=== PATIENT | female | born 1965 | race Caucasian/White ===

== ENCOUNTER 2017-11-12 10:28 | Day surgery (SDC) | payer BC ==
[2017-11-12] MEDS ORDERED: Sodium Citrate/Citric Acid* 15 ML UDC ONE (11:16)
[2017-11-12] MEDS ORDERED: Metoclopramide TAB* 10 MG ONE (11:16)
[2017-11-12] MEDS ORDERED: ceFAZolin 2 GM PREMIX (*) 2 GM/50 ML BAG IVPB ONE (12:36)
[2017-11-12] MEDS ORDERED: Lidocaine 1% MPF wEPI 200,000* 30 ML SDV ONE ×2 (13:27→14:18)
[2017-11-12] MEDS ORDERED: Bupivacaine 0.25% SDV* 30 ML ONE (13:28)
[2017-11-12] MEDS ORDERED: Midazolam* 1 MG/ML 5 ML VIAL (5 MG) ONE (13:54)
[2017-11-12] MEDS ORDERED: fentaNYL* 50 MCG/ML 2 ML VIAL (100 MCG VIAL) ONE (13:54)
[2017-11-12] MEDS ORDERED: Acetaminophen TAB* 325 MG PO PRN (14:15)
[2017-11-12] MEDS ORDERED: Naloxone* 0.4 MG/ML 1 ML VIAL IV PRN (14:15)
[2017-11-12] MEDS ORDERED: Propofol* 10 MG/ML 20 ML BTL IV PUSH ONE (14:18)
[2017-11-12] MEDS ORDERED: oxyCODONE TAB* 5 MG TAB PO PRN (14:54)
--- NOTE | 2017-11-12 15:03 | BRIEFOPN ---
Brief Operative Note - Surgery Procedures: PRE/POSTOPDX: LEFT AXILLARY LYMPHADENOPATHY PROC: INCISIONAL BIOPSY OF ABOVE SURG: MECENAS ASSIST: NONE ANES: LOCAL MAC/BYLEBYL EBL: MIN IVF: CRYSTALLOID SPEC: L AX LN INCISIONAL BX DRAIN/COMPL: NONE COND: STABLE TO RR.
[2017-11-12 15:41] VITALS: BP 103/65
--- NOTE | 2017-11-12 23:17 | OP ---
CC: Danny Gonzalez DO; Michael Au MD * DATE OF OPERATION: 11/12/17 - [facility] DATE OF : 65 SURGEON: Colin Berman MD RABBIT DRESSER: None. ANESTHESIOLOGIST: Dr. Rodriguez. ANESTHESIA: Local MAC. PRE-OP DIAGNOSIS: Left axillary lymphadenopathy. POST-OP DIAGNOSIS: Left axillary lymphadenopathy. OPERATIVE PROCEDURE: Incisional biopsy left axillary lymph node. ESTIMATED BLOOD LOSS: Minimal. IV FLUIDS: Crystalloid. SPECIMENS: Incisional biopsy of left axillary lymph node. DRAINS: None. COMPLICATIONS: None. COUNTS: Instrument, needle, and sponge counts were correct. DESCRIPTION OF PROCEDURE: The patient was brought to the operating room and placed on the table supine. Left arm was extended laterally and the site was prepped and draped in the usual sterile fashion. Time-out was performed. Local anesthetic was infiltrated into the skin, soft tissue, and curvilinear incision was created in the lower axilla in the anterior position where the lymph node was palpated. Subcutaneous tissues were divided with cautery and axillary space was entered. Some crossing small vessels were ligated with clips and divided. The lymph node was identified and then #15 blade scalpel was used to excise approximately 1 cubic centimeter of tissue. This was submitted fresh to pathology. The site was packed with Surgicel and inspected for hemostasis which was good. The wound was then closed with 3-0 Vicryl to approximate subcutaneous tissues and 4-0 Monocryl to close the skin in running subcuticular fashion, and Steri-Strips and dressing were applied. The patient tolerated the procedure well and was transferred to Recovery in stable condition. [id number]/[facility] #: [id number] [facility]
== END 2017-11-12 15:42 | disposition home or self-care (01) ==
LOC: OR 10:28
PROVIDERS: ATTEND Surgery
DX: C82.94 Follicular lymphoma, unspecified, lymph nodes of axilla and upper limb (principal); F17.210 Nicotine dependence, cigarettes, uncomplicated; M19.90 Unspecified osteoarthritis, unspecified site; F41.8 Other specified anxiety disorders; K21.9 Gastro-esophageal reflux disease without esophagitis
CPT/HCPCS: 81025; 88184; 88187; 88188; 88189; 88271; 88291; 88305; 88333; 88341; 88342; 88360; A9270-GY; J0690; J2001; J2250; J2704; J3010

== ENCOUNTER → 2017-11-15 07:17 | Day surgery (SDC) | payer BC ==
[~2017-11-15 07:17] MED LIST: Acetaminophen TAB* 325 MG PO PRN; Buffered Lidocaine 0.9% SYRIN* 5 ML/SYR SYRINGE INTRADERM ONE; Bupivacaine 0.25% SDV* 30 ML ONE; DiMENhydriNATE IV* 50 MG/ML VIAL IV PUSH PRN; Famotidine IV* 10 MG/ML 2 ML (20 mg) ONE; HYDROcodone/ACETAMIN 5-325 MG* 1 TAB PO PRN; Levalbuterol 0.63MG/3ML NEB* UNIT OF USE INH PRN; Lidocain 1% EPI 1:100,000 * 30 ML MDV ONE; Midazolam* 1 MG/ML 5 ML VIAL (5 MG) ONE; Naloxone* 0.4 MG/ML 1 ML VIAL IV PRN; PROCHLORPERAZINE INJ 5 MG/ML 2 ML VIAL IV PRN; Propofol* 10 MG/ML 20 ML BTL IV PUSH ONE; diPHENhydraMINE IV* 50 MG/ML 1 ml VIAL (BENADRYL) ONE; fentaNYL* 50 MCG/ML 2 ML VIAL (100 MCG VIAL) ONE
--- NOTE | 2017-11-15 11:27 | BRIEFOPN ---
Brief Operative Note - Surgery Procedures: 11/15/17 Op Note Pre-op dx: lymphoma Post-op dx: same Procedure: Power Port Placement Surgeon: Wil Asst: none Anesth: local-MAC EBL: 5 cc Complications: none SCDs on during surgery ABx not indicated Pt. tolerated procedure well and was transferred to in a stable condition. [facility]
--- NOTE | 2017-11-15 12:12 | RAD ---
HISTORY: Line placement COMPARISONS: None VIEWS: 1: frontal portable view of the chest at 11:43 AM FINDINGS: LINES AND TUBES: A right-sided chest port is noted from a right internal jugular vein approach with the tip overlying the superior vena cava. CARDIOMEDIASTINAL SILHOUETTE: The cardiomediastinal silhouette is normal for portable technique. PLEURA: The costophrenic angles are sharp. No pleural abnormalities are noted. There is no appreciable pneumothorax. LUNG PARENCHYMA: The lungs are clear. ABDOMEN: The upper abdomen is clear. There is no subphrenic gas. BONES AND SOFT TISSUES: No bone or soft tissue abnormalities are noted. IMPRESSION: LINES AND TUBES ABOVE. NO ACTIVE CARDIOPULMONARY DISEASE.
--- NOTE | 2017-11-15 12:22 | RAD ---
INDICATION: chest port placement COMPARISONS: None relevant TECHNIQUE: Fluoroscopy was provided for a vascular access procedure. Total fluoroscopy time is: 18.6 seconds FINDINGS: Spot images demonstrate a right-sided chest port from internal jugular vein approach with the tip overlying the superior cava. IMPRESSION: FLUOROSCOPY WAS PROVIDED FOR A VASCULAR ACCESS PROCEDURE CPT II Codes: G9500
[2017-11-15 12:48] VITALS: BP 121/70
--- NOTE | 2017-11-15 12:52 | OP ---
CC: [facility]; Dr. Danny Gonzalez; Dr. Michael Au. OPERATIVE REPORT: DATE OF OPERATION: 11/15/17 DATE OF : 65 SURGEON: Shey De La Torre MD NEWSWRITER: There was no housing assistant for this case. PRE-OP DIAGNOSIS: Lymphoma. POST-OP DIAGNOSIS: Lymphoma. OPERATIVE PROCEDURE: PowerPort placement. INDICATIONS: Ms. Amador is a 52-year-old woman recently diagnosed with lymphoma who needs chemotherap y and therefore needs access. She was prepared for PowerPort placement. DESCRIPTION OF PROCEDURE: She was brought to the operating room, placed on the OR table in a supine position and given IV sedation. The chest was prepped and draped in usual sterile fashion. After in filtrating with local anesthetic, under Seldinger technique, a wire was placed into the right IJ. Th is was done after attempts at accessing the right subclavian were unsuccessful. Next, the port pocke t was created. This was done by infiltrating the skin of the chest wall both by anesthetic and makin g an incision. Subcutaneous tissue was then divided with electrocautery to create a pocket anteriorl y. Once the pocket was of a size to accommodate the port, the catheter was tunnelled from the port p ocket site to the wire exit site and then a dilator and introducer were placed over the wire under fl uoroscopic visualization. The wire and dilator were removed and then the catheter was advanced throu gh the introducer into the right IJ under fluoroscopic visualization. The introducer was peeled away . The catheter was drawn back to an appropriate depth and then trimmed to an appropriate length. It was attached to the port. The port was inserted into the pocket and secured to the chest wall with a 2-0 Surgipro stitch. Then, the function of the port was checked and found to be adequate. So, cristian sure was accomplished, this was done with 3-0 Polysorb in subcutaneous layer and the skin was closed with 4-0 Prolene in a subcuticular fashion. Steri-Strips and dry sterile dressings were applied. Al l sponge and instrument counts were correct. The patient tolerated the procedure well and was transf erred to Recovery in a stable condition. [id number]/[facility] #: [id number]
== END | disposition home or self-care (01) ==
LOC: OR 07:17
PROVIDERS: ATTEND Surgery
DX: C85.90 Non-Hodgkin lymphoma, unspecified, unspecified site (principal); F17.210 Nicotine dependence, cigarettes, uncomplicated; G47.33 Obstructive sleep apnea (adult) (pediatric); F41.8 Other specified anxiety disorders; G51.0 Bell's palsy
CPT/HCPCS: 71045; 76000; 81025; C1788; J1200; J1642; J2250; J2704; J3010

== ENCOUNTER 2019-08-07 10:30 | Day surgery (SDC) | payer BC ==
[~2019-08-07 10:30] MED LIST changes: -Acetaminophen TAB* 325 MG PO PRN; -Buffered Lidocaine 0.9% SYRIN* 5 ML/SYR SYRINGE INTRADERM ONE; +Buffered Lidocaine 1% SYRIN* 1 ML/SYRINGE INTRADERM ONE; -Bupivacaine 0.25% SDV* 30 ML ONE; -DiMENhydriNATE IV* 50 MG/ML VIAL IV PUSH PRN; +Famotidine IV* 10 MG/ML 2 ML (20 mg) IV ONE; -Famotidine IV* 10 MG/ML 2 ML (20 mg) ONE; -HYDROcodone/ACETAMIN 5-325 MG* 1 TAB PO PRN; +Lactated Ringers 1000 ML Bag* 1,000 ML IV SCH; -Levalbuterol 0.63MG/3ML NEB* UNIT OF USE INH PRN; -Lidocain 1% EPI 1:100,000 * 30 ML MDV ONE; -Midazolam* 1 MG/ML 5 ML VIAL (5 MG) ONE; -Naloxone* 0.4 MG/ML 1 ML VIAL IV PRN; -PROCHLORPERAZINE INJ 5 MG/ML 2 ML VIAL IV PRN; -Propofol* 10 MG/ML 20 ML BTL IV PUSH ONE; -diPHENhydraMINE IV* 50 MG/ML 1 ml VIAL (BENADRYL) ONE; -fentaNYL* 50 MCG/ML 2 ML VIAL (100 MCG VIAL) ONE
[2019-08-07] MEDS ORDERED: Famotidine IV* 10 MG/ML 2 ML (20 mg) ONE (10:53)
[2019-08-07] MEDS ORDERED: Buffered Lidocaine 1% SYRIN* 1 ML/SYRINGE INTRADERM ONE (11:46)
[2019-08-07] MEDS ORDERED: Lidocaine 2% PF * 5 ML VIAL ONE (12:32)
[2019-08-07] MEDS ORDERED: Ondansetron INJ* 2 MG/ML VIAL ONE (12:32)
[2019-08-07] MEDS ORDERED: Midazolam* 1 MG/ML 5 ML VIAL (5 MG) ONE (12:32)
[2019-08-07] MEDS ORDERED: fentaNYL* 50 MCG/ML 2 ML VIAL (100 MCG VIAL) ONE ×2 (12:32→13:45)
[2019-08-07] MEDS ORDERED: Propofol* 10 MG/ML 20 ML BTL ONE ×2 (12:32→14:05)
[2019-08-07] MEDS ORDERED: Dexamethasone IV* 4 MG/ML 1 ML (4 MG) ONE (12:32)
[2019-08-07] MEDS ORDERED: Glycopyrrolate IV* 0.2 MG/ML 1 ML VIAL ONE (12:40)
[2019-08-07] MEDS ORDERED: Neostigmine Methylsulfate* 1 MG/ML 10 ML VIAL (1 mg/ml) ONE (12:40)
[2019-08-07] MEDS ORDERED: Lidocaine 2% w/ EPI 1:200,000* 20 ML SDV VIAL ONE (13:06)
[2019-08-07] MEDS ORDERED: fentaNYL* 50 MCG/ML 2 ML VIAL (100 MCG VIAL) IV PRN (13:54)
[2019-08-07] MEDS ORDERED: Ondansetron INJ* 2 MG/ML VIAL IV PRN (13:54)
[2019-08-07] MEDS ORDERED: Naloxone* 0.4 MG/ML 1 ML VIAL IV PRN (13:54)
[2019-08-07] MEDS ORDERED: Ketorolac INJ* 30 MG/ML 1 ML VIAL ONE (14:12)
[2019-08-07 15:53] VITALS: BP 127/82
--- NOTE | 2019-08-07 20:26 | OP ---
DATE OF OPERATION: 08/07/19 - [facility] DATE OF : 65 SURGEON: Hussein Garduno MD COTTRELL OPERATOR: Ariel See MD PRE-OP DIAGNOSIS: Deep lymph node, possible lymphoma. POST-OP DIAGNOSIS: Deep lymph node, possible lymphoma. OPERATIVE PROCEDURE: Excision of deep lymph node. BRIEF HISTORY: This 54-year-old female with history of previous lymphoma, metastatic. Workup included PET scan showing multiple enlarged and enhancing lymph nodes in the left neck. DESCRIPTION OF PROCEDURE: The patient was taken to the operating room. General anesthetic was given. The patient was intubated. The left neck was prepped and draped in usual fashion. A curvilinear incision was made 2 cm below the angle of the mandible, taken through the subplatysma. Anterior border of the sternocleidomastoid was identified, carefully peeled out posteriorly. Lymph node was identified carefully. Blunt and sharp dissection around the lymph node was carried out, unfortunately it ruptured. The lymph node was then removed in pieces and sent for permanent sections. Small pieces of Surgicel were used for hemostasis. The patient's neck was then closed in single layer using Vicryl. A small dressing was applied. The patient was awakened and sent to the recovery room in stable condition. Instrument and sponge counts were correct. Blood loss minimal. [id number]/[facility] #: [id number] [facility]
== END 2019-08-07 16:06 | disposition home or self-care (01) ==
LOC: OR 10:30
PROVIDERS: ATTEND Otolaryngology
DX: C82.11 Follicular lymphoma grade II, lymph nodes of head, face, and neck (principal); R59.0 Localized enlarged lymph nodes; G47.33 Obstructive sleep apnea (adult) (pediatric); K21.9 Gastro-esophageal reflux disease without esophagitis; M19.90 Unspecified osteoarthritis, unspecified site; M79.7 Fibromyalgia; F41.8 Other specified anxiety disorders; G51.0 Bell's palsy; F17.210 Nicotine dependence, cigarettes, uncomplicated
CPT/HCPCS: 88184; 88187; 88188; 88189; 88305; 88333; J1100; J1885; J2250; J2405; J2704; J2710; J3010

== ENCOUNTER 2023-06-18 08:14 | Observation (INO) ==
[~2023-06-18 08:14] MED LIST changes: -Buffered Lidocaine 1% SYRIN* 1 ML/SYRINGE INTRADERM ONE; -Famotidine IV* 10 MG/ML 2 ML (20 mg) IV ONE; -Lactated Ringers 1000 ML Bag* 1,000 ML IV SCH; +SODIUM CHLORIDE 0.9% IVPB SCH; +[UNRECOGNIZED DRUG - OTHER] IVPB SCH
[2023-06-18 08:47] LABS: ABS Eosinophils 0.1 10^3/uL (0.0-0.5); ABS Lymphocytes 1.8 10^3/uL (1.0-4.8); ABS Monocytes 0.6 10^3/uL (0.0-0.9); ABS Neutrophils 3.4 10^3/uL (1.5-7.6); ABS Nucleated RBC 0.01 10^3/ul; Hematocrit 36.2 % (35-45); Hemoglobin 12.1 g/dL (11.5-14.3); Lymphocyte % 30.2 %; Mean Corpuscular Hemoglobin 26.5 pg (27-33); Mean Corpuscular Hgb Conc 33.4 g/dL (31-36); Mean Corpuscular Volume 79.3 fL (80-97); Mean Platelet Volume 7.5 fL (7.5-11.2); Nucleated Red Blood Cells % 0.2 %/100WBC (0.0-0.8); Platelet Count 284 10^3/uL (150-450); Red Blood Count 4.57 10^6/uL (3.63-4.92); Red Cell Distribution Width 17.4 % (12-17); White Blood Count 6.1 10^3/uL (3.8-11.8)
[2023-06-18 09:18] LABS: ALT 15 U/L (7-52); Albumin 3.9 g/dL (3.2-5.2); Albumin/Globulin Ratio 1.6 (1-3); Alkaline Phosphatase 109 U/L (35-149); Anion Gap 11 mmol/L (2-16); Blood Urea Nitrogen 11 mg/dL (6-24); CO2 Carbon Dioxide 26 mmol/L (22-32); Calcium 9.6 mg/dL (8.6-10.3); Chloride 103 mmol/L (101-111); Creatinine, Serum 0.57 mg/dL (0.51-0.95); Globulin 2.4 g/dL (2-4); Glucose 115 mg/dL (70-100); Magnesium 1.8 mg/dL (1.9-2.7); Sodium 140 mmol/L (135-145); Total Bilirubin 0.2 mg/dL (0.2-1.0); Total Protein 6.3 g/dL (6.4-8.9); eGFR CKD-EPI 105.3 (>60)
[2023-06-18] MEDS ORDERED: Dexamethasone IV 4 MG/ML 5 ML VIAL (20 MG) IVPB ONE (09:27)
[2023-06-18] MEDS ORDERED: diphenhydrAMINE 50 MG/ML INJ SYRINGE *CHOA ONE (09:27)
[2023-06-18] MEDS ORDERED: Dexamethasone IV 20 MG in NS 0.9% 50 ML 50 ML IVPB ONE (09:28)
[2023-06-18] MEDS ORDERED: Dexamethasone IV 20 MG in NS 0.9% 50 ML 50 ML IVPB PRN (12:03)
[2023-06-18] MEDS ORDERED: oxyCODONE/Acetamin 5/325 mg TAB PO PRN (13:39)
[2023-06-18] MEDS ORDERED: Senna TAB 8.6 mg TAB PO PRN (15:33)
[2023-06-18] MEDS ORDERED: Ondansetron ODT 4 mg TAB 4 MG TAB PO PRN (16:23)
[2023-06-18 17:27] LABS: Potassium, Whole Blood 3.6 mmol/L (3.4-4.5)
[2023-06-18] MEDS: Potassium Chlor 20 meq TAB.ER PO SCH (20:58)
[2023-06-18] MEDS ORDERED: DULoxetine DR 30 mg CAP PO SCH (21:00)
[2023-06-19 06:40] LABS: ABS Lymphocytes 0.3 10^3/uL (1.0-4.8); ABS Monocytes 0.8 10^3/uL (0.0-0.9); ABS Neutrophils 10.6 10^3/uL (1.5-7.6); ABS Nucleated RBC 0.01 10^3/ul; Eosinophil % 0.1 %; Hematocrit 34.3 % (35-45); Hemoglobin 11.6 g/dL (11.5-14.3); Lymphocyte % 2.9 %; Mean Corpuscular Hemoglobin 26.4 pg (27-33); Mean Corpuscular Hgb Conc 33.7 g/dL (31-36); Mean Corpuscular Volume 78.5 fL (80-97); Mean Platelet Volume 7.7 fL (7.5-11.2); Platelet Count 301 10^3/uL (150-450); Red Blood Count 4.37 10^6/uL (3.63-4.92); Red Cell Distribution Width 17.3 % (12-17); White Blood Count 11.8 10^3/uL (3.8-11.8)
[2023-06-19 06:42] LABS: Albumin 3.9 g/dL (3.2-5.2); Albumin/Globulin Ratio 1.7 (1-3); Calcium 9.9 mg/dL (8.6-10.3); Creatinine, Serum 0.54 mg/dL (0.51-0.95); Globulin 2.3 g/dL (2-4); Magnesium 1.7 mg/dL (1.9-2.7); Potassium 3.8 mmol/L (3.5-5.0); Total Bilirubin 0.3 mg/dL (0.2-1.0); Total Protein 6.2 g/dL (6.4-8.9); eGFR CKD-EPI 106.7 (>60)
[2023-06-19] MEDS: Potassium Chlor 20 meq TAB.ER PO SCH (07:55)
[2023-06-19] MEDS ORDERED: Methylphenidate ER 18 mg TAB PO SCH (09:00)
[2023-06-19] MEDS ORDERED: DULoxetine DR 60 mg CAP PO SCH (09:00)
[2023-06-19] MEDS ORDERED: Cholecalciferol (VIT D3) 1,000 unit TAB PO SCH (09:00)
[2023-06-19 10:05] VITALS: BP 102/60
== END 2023-06-19 11:15 | disposition home or self-care (01) ==
LOC: CHOA 08:14 → MEDTELE 08:14
PROVIDERS: ADMIT Internal Medicine Hematology & Oncology; ATTEND Internal Medicine Hematology & Oncology

== ENCOUNTER 2023-10-14 08:22 | Inpatient (IN) ==
[~2023-10-14 08:22] MED LIST changes: +ETOPOSIDE IVPB SCH; +NS 0.9% IVPB SCH; +RITUXIMAB ABBS IVPB SCH; -SODIUM CHLORIDE 0.9% IVPB SCH; -[UNRECOGNIZED DRUG - OTHER] IVPB SCH
[2023-10-14 08:30] LABS: Hematocrit 36.6 % (35-45); Hemoglobin 12.8 g/dL (11.5-14.3); Mean Corpuscular Hemoglobin 30.8 pg (27-33); Mean Corpuscular Hgb Conc 35.1 g/dL (31-36); Mean Corpuscular Volume 87.8 fL (80-97); Mean Platelet Volume 7.7 fL (7.5-11.2); Platelet Count 285 10^3/uL (150-450); Red Blood Count 4.16 10^6/uL (3.63-4.92); Red Cell Distribution Width 16.6 % (12-17); White Blood Count 10.6 10^3/uL (3.8-11.8)
[2023-10-14 08:35] LABS: ABS Neutrophils 8.6 10^3/uL (1.5-7.6)
[2023-10-14 08:53] LABS: Albumin 4.1 g/dL (3.2-5.2); Calcium 9.6 mg/dL (8.6-10.3); Creatinine, Serum 0.55 mg/dL (0.51-0.95); Globulin 2.1 g/dL (2-4); Potassium 3.6 mmol/L (3.5-5.0); Total Bilirubin 0.3 mg/dL (0.2-1.0); Total Protein 6.2 g/dL (6.4-8.9); eGFR CKD-EPI 106.2 (>60)
[2023-10-14] MEDS ORDERED: Dexamethasone IV 4 MG/ML 5 ML VIAL (20 MG) IVPB ONE (08:57)
[2023-10-14] MEDS ORDERED: diphenhydrAMINE 50 MG/ML INJ SYRINGE *CHOA ONE (08:57)
[2023-10-14 10:32] LABS: ABS Basophils 0.1 10^3/uL (0.0-0.1); ABS Lymphocytes 0.7 10^3/uL (1.0-4.8); ABS Monocytes 1.2 10^3/uL (0.0-0.9); ABS Nucleated RBC 0.02 10^3/ul; Eosinophil % 0.4 %; Lymphocyte % 6.6 %; Nucleated Red Blood Cells % 0.2 %/100WBC (0.0-0.8); RBC Morphology Normal (Normal)
[2023-10-14] MEDS ORDERED: Senna TAB 8.6 mg TAB PO PRN (15:16)
[2023-10-14] MEDS ORDERED: oxyCODONE/Acetamin 5/325 mg TAB PO PRN (15:16)
[2023-10-14] MEDS: Ondansetron ODT 4 mg TAB 4 MG TAB PO PRN (18:38)
[2023-10-14] MEDS: Enoxaparin 40 MG/0.4 ML SYR SUBCUT SCH (18:40)
[2023-10-14] MEDS: Sulfamethox/Trimethoprim DS TAB 800/160 mg PO SCH (18:42)
[2023-10-14] MEDS: Potassium Chlor 20 meq TAB.ER PO SCH (20:04)
[2023-10-14] MEDS: DULoxetine DR 30 mg CAP PO SCH (20:05)
[2023-10-15 06:41] LABS: ABS Lymphocytes 0.6 10^3/uL (1.0-4.8); ABS Monocytes 1.1 10^3/uL (0.0-0.9); ABS Neutrophils 13.1 10^3/uL (1.5-7.6); Hematocrit 35.8 % (35-45); Hemoglobin 12.1 g/dL (11.5-14.3); Lymphocyte % 4.4 %; Mean Corpuscular Hemoglobin 29.6 pg (27-33); Mean Corpuscular Hgb Conc 33.8 g/dL (31-36); Mean Corpuscular Volume 87.7 fL (80-97); Platelet Count 339 10^3/uL (150-450); Red Blood Count 4.08 10^6/uL (3.63-4.92); Red Cell Distribution Width 16.3 % (12-17); White Blood Count 14.9 10^3/uL (3.8-11.8)
[2023-10-15 06:56] LABS: Albumin 4.1 g/dL (3.2-5.2); Albumin/Globulin Ratio 2.3 (1-3); Calcium 10.1 mg/dL (8.6-10.3); Creatinine, Serum 0.48 mg/dL (0.51-0.95); Globulin 1.8 g/dL (2-4); Potassium 4.3 mmol/L (3.5-5.0); Total Bilirubin 0.5 mg/dL (0.2-1.0); Total Protein 5.9 g/dL (6.4-8.9); eGFR CKD-EPI 109.7 (>60)
[2023-10-15] MEDS: Dexamethasone IV 4 MG/ML VIAL 1 ml VIAL IV SLOW PU SCH (08:31)
[2023-10-15] MEDS: PALONOSETRON HCL 0.05 MG/ML (0.25 MG) SYRINGE (0.05 MG/ML) IV ONE (08:31)
[2023-10-15] MEDS: NS 0.9% 1000 ml BAG 1,000 ML IV ONE ×2 (08:32→11:26)
[2023-10-15] MEDS: Cholecalciferol (VIT D3) 1,000 unit TAB PO SCH (09:30)
[2023-10-15] MEDS: DULoxetine DR 60 mg CAP PO SCH (09:31)
[2023-10-15] MEDS: [UNRECOGNIZED DRUG - REMARK] SUBCUT SCH (09:38)
[2023-10-15] MEDS: NS 0.9% IVPB ONE ×3 (09:55→11:26)
[2023-10-15] MEDS: ETOPOSIDE IVPB ONE (09:55)
[2023-10-15] MEDS ORDERED: MESNA IVPB ONE (10:30)
[2023-10-15] MEDS ORDERED: NS 0.9% IVPB ONE (10:30)
[2023-10-15] MEDS ORDERED: IFOSFAMIDE IVPB ONE (10:30)
[2023-10-15] MEDS: CARBOPLATIN IVPB ONE (10:33)
[2023-10-15] MEDS: IFOSFAMIDE IVPB ONE (11:26)
[2023-10-15] MEDS: MESNA IVPB ONE (11:26)
[2023-10-15] MEDS: NS 0.9% 1000 ml BAG 1,000 ML IV SCH (15:53)
[2023-10-16] MEDS: NS 0.9% 1000 ml BAG 1,000 ML IV SCH (00:56)
[2023-10-16 07:22] LABS: ABS Lymphocytes 0.9 10^3/uL (1.0-4.8); ABS Monocytes 1.1 10^3/uL (0.0-0.9); ABS Neutrophils 6.3 10^3/uL (1.5-7.6); ABS Nucleated RBC 0.01 10^3/ul; Eosinophil % 0.1 %; Hematocrit 35.8 % (35-45); Hemoglobin 12.4 g/dL (11.5-14.3); Lymphocyte % 10.3 %; Mean Corpuscular Hemoglobin 30.5 pg (27-33); Mean Corpuscular Hgb Conc 34.6 g/dL (31-36); Mean Corpuscular Volume 87.9 fL (80-97); Mean Platelet Volume 7.9 fL (7.5-11.2); Nucleated Red Blood Cells % 0.1 %/100WBC (0.0-0.8); Platelet Count 356 10^3/uL (150-450); Red Blood Count 4.07 10^6/uL (3.63-4.92); Red Cell Distribution Width 16.7 % (12-17); White Blood Count 8.3 10^3/uL (3.8-11.8)
[2023-10-16 07:41] LABS: Albumin 3.9 g/dL (3.2-5.2); Albumin/Globulin Ratio 2.3 (1-3); Calcium 9.6 mg/dL (8.6-10.3); Creatinine, Serum 0.52 mg/dL (0.51-0.95); Globulin 1.7 g/dL (2-4); Potassium 4.3 mmol/L (3.5-5.0); Total Bilirubin 0.6 mg/dL (0.2-1.0); Total Protein 5.6 g/dL (6.4-8.9); eGFR CKD-EPI 107.6 (>60)
[2023-10-16] MEDS: NS 0.9% IVPB ONE (11:24)
[2023-10-16] MEDS: ETOPOSIDE IVPB ONE (11:24)
[2023-10-16] MEDS: NS 0.9% 1000 ml BAG 1,000 ML IV ONE (11:25)
[2023-10-16] MEDS: Dexamethasone IV 4 MG/ML VIAL 1 ml VIAL ONE (11:26)
[2023-10-16 13:52] VITALS: BP 127/80
== END 2023-10-16 15:15 | disposition home or self-care (01) | DRG 847 ==
LOC: CHOA 08:22 → MED 17:34
PROVIDERS: ADMIT Internal Medicine Hematology; ATTEND Internal Medicine Hematology

== ENCOUNTER 2023-11-18 08:08 | Inpatient (IN) ==
[2023-11-18 08:29] LABS: Hematocrit 38.4 % (35-45); Hemoglobin 13.2 g/dL (11.5-14.3); Mean Corpuscular Hemoglobin 32.1 pg (27-33); Mean Corpuscular Hgb Conc 34.3 g/dL (31-36); Mean Corpuscular Volume 93.7 fL (80-97); Mean Platelet Volume 7.3 fL (7.5-11.2); Platelet Count 192 10^3/uL (150-450); Red Cell Distribution Width 19.6 % (12-17)
[2023-11-18 08:33] LABS: ABS Basophils 0.1 10^3/uL (0.0-0.1); ABS Eosinophils 0.1 10^3/uL (0.0-0.5); ABS Monocytes 1.2 10^3/uL (0.0-0.9); ABS Neutrophils 3.6 10^3/uL (1.5-7.6); Eosinophil % 2.5 %; Lymphocyte % 16.6 %
[2023-11-18] MEDS ORDERED: Dexamethasone IV 4 MG/ML VIAL 1 ml VIAL ONE (08:36)
[2023-11-18] MEDS ORDERED: diphenhydrAMINE 50 MG/ML INJ SYRINGE *CHOA ONE (08:36)
[2023-11-18 09:11] LABS: Albumin 4.2 g/dL (3.2-5.2); Calcium 9.4 mg/dL (8.6-10.3); Creatinine, Serum 0.55 mg/dL (0.51-0.95); Globulin 2.1 g/dL (2-4); Potassium 3.9 mmol/L (3.5-5.0); Total Bilirubin 0.5 mg/dL (0.2-1.0); Total Protein 6.3 g/dL (6.4-8.9); eGFR CKD-EPI 106.2 (>60)
[2023-11-18] MEDS ORDERED: CARBOPLATIN IVPB ONE (09:30)
[2023-11-18] MEDS ORDERED: NS 0.9% IVPB ONE (09:30)
[2023-11-18] MEDS ORDERED: Senna TAB 8.6 mg TAB PO PRN (10:30)
[2023-11-18] MEDS ORDERED: oxyCODONE/Acetamin 5/325 mg TAB PO PRN (10:30)
[2023-11-18] MEDS: NS 0.9% 1000 ml BAG 1,000 ML IV SCH (13:40)
[2023-11-18] MEDS: Enoxaparin 40 MG/0.4 ML SYR SUBCUT SCH (14:32)
[2023-11-18] MEDS: Sulfamethox/Trimethoprim DS TAB 800/160 mg PO SCH (14:40)
[2023-11-18] MEDS: Ondansetron ODT 4 mg TAB 4 MG TAB PO PRN (17:42)
[2023-11-18] MEDS: Potassium Chlor 20 meq TAB.ER PO SCH (20:39)
[2023-11-18] MEDS: DULoxetine DR 30 mg CAP PO SCH (20:39)
[2023-11-18] MEDS ORDERED: Omeprazole 20 mg CAP (NF) PO SCH (21:00)
[2023-11-18] MEDS: Scopolamine 1 mg/72hr PATCH TRANSDERM PRN (21:45)
[2023-11-19 06:16] LABS: ABS Lymphocytes 0.7 10^3/uL (1.0-4.8); ABS Monocytes 1.2 10^3/uL (0.0-0.9); ABS Neutrophils 4.9 10^3/uL (1.5-7.6); ABS Nucleated RBC 0.01 10^3/ul; Eosinophil % 0.2 %; Hematocrit 34.7 % (35-45); Lymphocyte % 10.4 %; Mean Corpuscular Hemoglobin 32.5 pg (27-33); Mean Corpuscular Hgb Conc 34.7 g/dL (31-36); Mean Corpuscular Volume 93.6 fL (80-97); Mean Platelet Volume 7.7 fL (7.5-11.2); Nucleated Red Blood Cells % 0.1 %/100WBC (0.0-0.8); Platelet Count 171 10^3/uL (150-450); Red Cell Distribution Width 19.2 % (12-17); White Blood Count 6.9 10^3/uL (3.8-11.8)
[2023-11-19 06:30] LABS: Albumin/Globulin Ratio 2.5 (1-3); Calcium 9.5 mg/dL (8.6-10.3); Creatinine, Serum 0.46 mg/dL (0.51-0.95); Globulin 1.6 g/dL (2-4); Potassium 4.3 mmol/L (3.5-5.0); Total Bilirubin 0.4 mg/dL (0.2-1.0); Total Protein 5.6 g/dL (6.4-8.9); eGFR CKD-EPI 110.9 (>60)
[2023-11-19] MEDS: PALONOSETRON HCL 0.05 MG/ML (0.25 MG) SYRINGE (0.05 MG/ML) IV ONE (09:11)
[2023-11-19] MEDS: Cholecalciferol (VIT D3) 1,000 unit TAB PO SCH (09:11)
[2023-11-19] MEDS: DULoxetine DR 60 mg CAP PO SCH (09:11)
[2023-11-19] MEDS: Dexamethasone IV 4 MG/ML VIAL 1 ml VIAL IV SLOW PU SCH (09:11)
[2023-11-19] MEDS: Methylphenidate ER 18 mg TAB PO SCH (09:12)
[2023-11-19] MEDS: ETOPOSIDE IVPB ONE (09:48)
[2023-11-19] MEDS: NS 0.9% IVPB ONE ×3 (09:48→12:26)
[2023-11-19] MEDS: CARBOPLATIN IVPB ONE (10:26)
[2023-11-19] MEDS: NS 0.9% 1000 ml BAG 1,000 ML IV ONE (11:07)
[2023-11-19] MEDS: IFOSFAMIDE IVPB ONE (12:26)
[2023-11-19] MEDS: MESNA IVPB ONE (12:26)
[2023-11-19] MEDS: NS 0.9% 1000 ml BAG 1,000 ML IV SCH (12:27)
[2023-11-20 07:13] LABS: ABS Lymphocytes 0.8 10^3/uL (1.0-4.8); ABS Nucleated RBC 0.01 10^3/ul; Eosinophil % 0.3 %; Hematocrit 35.5 % (35-45); Lymphocyte % 13.1 %; Mean Corpuscular Hemoglobin 32.5 pg (27-33); Mean Corpuscular Volume 95.6 fL (80-97); Mean Platelet Volume 8.1 fL (7.5-11.2); Nucleated Red Blood Cells % 0.1 %/100WBC (0.0-0.8); Platelet Count 162 10^3/uL (150-450); Red Blood Count 3.71 10^6/uL (3.63-4.92); Red Cell Distribution Width 19.5 % (12-17); White Blood Count 5.8 10^3/uL (3.8-11.8)
[2023-11-20 07:30] LABS: Albumin/Globulin Ratio 2.5 (1-3); Calcium 9.5 mg/dL (8.6-10.3); Creatinine, Serum 0.54 mg/dL (0.51-0.95); Globulin 1.6 g/dL (2-4); Potassium 4.2 mmol/L (3.5-5.0); Total Bilirubin 0.9 mg/dL (0.2-1.0); Total Protein 5.6 g/dL (6.4-8.9); eGFR CKD-EPI 106.7 (>60)
[2023-11-20 10:11] VITALS: BP 140/75
[2023-11-20] MEDS: COVID VAC 23-24(12+)(Moderna) SYR 0.5 ML IM ONE (10:25)
[2023-11-20] MEDS: NS 0.9% IVPB ONE (12:43)
[2023-11-20] MEDS: ETOPOSIDE IVPB ONE (12:43)
[2023-11-20] MEDS: NS 0.9% 1000 ml BAG 1,000 ML IV ONE (13:27)
== END 2023-11-20 15:15 | disposition home or self-care (01) | DRG 847 ==
LOC: CHOA 08:08 → MED 10:12
PROVIDERS: ADMIT Internal Medicine Hematology & Oncology; ATTEND Internal Medicine Hematology & Oncology